=== PATIENT | female | born 2000 | race Caucasian/White ===

== ENCOUNTER → 2023-07-26 13:37 | Outpatient (BNVA) | payer BC, SELFPAY | PROVIDERS: PCP Family Medicine; Visit Provider Family Medicine | DX: R50.9 Fever, unspecified (principal); R05.9 Cough, unspecified | CPT/HCPCS: 87071; 87400; 87426; 87880 ==

== ENCOUNTER → 2024-02-02 13:15 | Outpatient (BNVA) | payer BC, SELFPAY | PROVIDERS: PCP Family Medicine; Visit Provider Family Medicine | DX: R05.9 Cough, unspecified (principal) | CPT/HCPCS: 87400; 87426 ==

== ENCOUNTER → 2024-03-08 14:00 | Outpatient (BNVA) | payer BC, SELFPAY | PROVIDERS: Visit Provider Nurse Practitioner Family | DX: R00.0 Tachycardia, unspecified (principal) | CPT/HCPCS: 80053; 84443; 85025 ==

== ENCOUNTER 2024-05-24 13:28 | Outpatient (CLI) | payer BC, SELFPAY ==
--- NOTE | 2024-05-24 14:00 | US_ITS ---
WS: [id number] ULTRASOUND BREAST LEFT TECHNIQUE: Ultrasound left breast focused area of concern. CLINICAL INFORMATION: N64.4 - Mastodynia COMPARISON: None. FINDINGS: Ultrasound LEFT breast area of interest 11-2 o'clock position. Incidental dilated duct posterior to t he nipple. No suspicious cystic or solid lesions. No suspicious lesions to target for biopsy. US/US breast LT limited* [id number] IMPRESSION: BI-RADS 2 benign Follow-up: See report
== END 2024-05-24 13:29 | disposition home or self-care (01) ==
LOC: RAD 13:31
PROVIDERS: PCP Nurse Practitioner Family; Visit Provider Nurse Practitioner Family
DX: N60.42 Mammary duct ectasia of left breast (principal); N64.4 Mastodynia
CPT/HCPCS: 76642